=== PATIENT | male | born 1995 | race Caucasian/White ===

== ENCOUNTER 2017-03-02 20:16 | Emergency (ER) | payer SELFPAY ==
[~2017-03-02] VITALS: Ht 172.7 cm; Wt 72.4 kg
[2017-03-02 20:35] VITALS: BP 157/90; PULSE 91; RESP 16; TEMP 98.2; O2SAT 99
[2017-03-02] MEDS ORDERED: VIST25CA PO (21:06)
--- NOTE | 2017-03-02 21:06 | PD ---
HPI Chief Complaint: Anxiety Time Seen by Provider: 20:48 Travel History International Travel<30 days: No Contact w/Intl Traveler<30days: No Traveled to known affect area: No History of Present Illness HPI The patient is a 21-year-old male that states for the past 3 days he's been very anxious. He is not suicidal. He denies any fever, headache, nausea, vomiting or diarrhea. He states he has a feeling of a lump in the throat but not a sore throat. He denies any hallucinations/delusions. The patient denies any drug abuse and states that has been months since he used marijuana. The patient cannot identify any specific stresses. PFSH Past Medical History Diminished Hearing: No Genitourinary: Yes (HYPERSPADIS, TO HAVE SURGERY 11/2013) Immunizations Current: Yes Social History Alcohol Use: Yes (OCC) Tobacco Use: Yes (/ PPD) Substance Use: No Allergies-Medications (Allergen,Severity, Reaction): Coded Allergies: No Known Allergies (Unverified Adverse Reaction, Unknown, 03/02/17) Reported Meds & Prescriptions Reported Meds & Active Scripts Active No Active Prescriptions or Reported Medications Review of Systems Except as stated in HPI: all other systems reviewed are Neg Physical Exam Narrative GENERAL: The patient is alert, oriented 3, anxious in no apparent distress other than anxiety. His vital signs show blood pressure 157/90 but otherwise normal. SKIN: Focused skin assessment warm/dry. No needle tracks nor wrist slash arriola are present. HEAD: Atraumatic. Normocephalic. EYES: Pupils equal and round. No scleral icterus. No injection or drainage. ENT: No nasal bleeding or discharge. Mucous membranes pink and moist. The throat is clear with minimal erythema, no masses or abscess seen and there is no exudate. Uvula is in the midline. NECK: Trachea midline. No JVD. Thyroid appears normal. CARDIOVASCULAR: Regular rate and rhythm. No murmur appreciated. RESPIRATORY: No accessory muscle use. Clear to auscultation. Breath sounds equal bilaterally. GASTROINTESTINAL: Abdomen soft, non-tender, nondistended. Hepatic and splenic margins not palpable. MUSCULOSKELETAL: No obvious deformities. No clubbing. No cyanosis. No edema. NEUROLOGICAL: Awake and alert. No obvious cranial nerve deficits. Motor grossly within normal limits. Normal speech. PSYCHIATRIC: The patient is anxious; insight and judgment normal. Data Data Last Documented VS Vital Signs Date Time Temp Pulse Resp B/P (MAP) Pulse Ox O2 Delivery O2 Flow Rate FiO2 03/02/17 20:50 88 18 03/02/17 20:35 98.2 157/90 (112) 99 MDM Medical Decision Making Medical Screen Exam Complete: Yes Emergency Medical Condition: Yes Medical Record Reviewed: Yes Differential Diagnosis Anxiety reaction, panic attack, drug abuse-family unlikely, alcohol withdrawal- I really unlikely, hyperthyroid-highly unlikely, situational anxiety Narrative Course At this time the patient appears under control and is having an anxiety reaction. He is not having a panic attack at this time. His history is not consistent with alcohol/drug withdrawal or hyperthyroid. This is not situational anxiety, the patient cannot identify any specific stressors at work or at home. Diagnosis Primary Impression: Anxiety reaction Additional Instructions: It is helpful to talk through your anxiety symptoms someone else. Also, exercises useful when you get anxious. I will write some Vistaril to see if this works. Vistaril is not addictive. Vistaril can make you sleepy so do not drink alcohol or drive with this medication. Med/Other Pt SpecificInfo: Prescription(s) given Scripts Hydroxyzine Pamoate (Vistaril) 25 Mg Cap 25 MG PO Q6H Y for ANXIETY, #44 CAP 0 Refills Prov: West Ball MD 03/02/17 Disposition: 01 DISCHARGE HOME Condition: Stable West Ball MD Mar 02, 2017 21:06
[2017-03-02 21:45] VITALS: BP 148/87; PULSE 94; RESP 16; O2SAT 100
== END 2017-03-02 22:04 | disposition home or self-care (01) ==
LOC: PHED 20:16
DX: F41.1 Generalized anxiety disorder (principal); F17.200 Nicotine dependence, unspecified, uncomplicated
CPT/HCPCS: 99283

== ENCOUNTER 2017-03-04 13:20 | Emergency (ER) | payer OTHER ==
[~2017-03-04] VITALS: Ht 172.7 cm; Wt 73.0 kg
[~2017-03-04 13:20] MED LIST: VIST25CA PO
[2017-03-04 13:22] VITALS: BP 150/84; PULSE 81; RESP 12; TEMP 98.5; O2SAT 99
--- NOTE | 2017-03-04 14:02 | PD ---
HPI Chief Complaint: ENT Complaint Time Seen by Provider: 13:51 Travel History International Travel<30 days: No Contact w/Intl Traveler<30days: No History of Present Illness HPI 21-year-old male presents emergency Department with complaint of feeling like something is in his throat for the last 3-5 days. Says he went to [facility] a few days ago because he was anxious about his throat and was given Vistaril which made him feel worse. He says it feels like its a growth. He denies unusual drooling, lump in throat on one side or the other, difficulty swallowing. Denies painful swallowing. Denies sore throat. Denies difficulty eating or drinking. Denies fever, vomiting. Says his throat feels like it swollen. Denies cough, ear pain, recent illness. Allergies to hydroxyzine. No known relieving or aggravating factors. Has no other medical complaints. No other modifying factors or associated signs and symptoms. PFSH Past Medical History Hx Anticoagulant Therapy: No Anxiety: Yes Cardiovascular Problems: No Chemotherapy: No Cerebrovascular Accident: No Diabetes: No Diminished Hearing: No Genitourinary: Yes (HYPERSPADIS, TO HAVE SURGERY 11/2013) Respiratory: No Immunizations Current: Yes Past Surgical History Genitourinary Surgery: Yes (REPAIR HYPERSPADIS) Social History Alcohol Use: Yes (OCC) Tobacco Use: Yes (few cigarrettes per day) Substance Use: No Allergies-Medications (Allergen,Severity, Reaction): Coded Allergies: hydroxyzine (Verified Adverse Reaction, Severe, Nausea/Vomiting, 03/04/17) pt states caused nausea and diarrhea No Known Allergies (Unverified Adverse Reaction, Unknown, 03/02/17) Reported Meds & Prescriptions Reported Meds & Active Scripts Active No Active Prescriptions or Reported Medications Review of Systems Except as stated in HPI: all other systems reviewed are Neg Physical Exam Narrative GENERAL: Well-nourished, well-developed male patient, in no acute distress; afebrile, nontoxic-appearing SKIN: Warm and dry. No rash. HEAD: Atraumatic. Normocephalic. EYES: Pupils equal and round. No scleral icterus. No injection or drainage. ENT: Mucosa pink and moist. No erythema or exudates. No uvular edema. No uvular , palatal, or tonsillar deviation. Airway patent. EARS: Bilateral pinnae and external canals appear within normal limits. Bilateral tympanic membranes without erythema, dullness or perforation. NECK: Trachea midline. No lymphadenopathy. CARDIOVASCULAR: Regular rate and rhythm. No murmur appreciated. RESPIRATORY: No accessory muscle use. Clear to auscultation. Breath sounds equal bilaterally. No retractions or tachypnea. GASTROINTESTINAL: Abdomen soft, non-tender, nondistended. Hepatic and splenic margins not palpable. Bowel sounds are active 4 quadrants. MUSCULOSKELETAL: No obvious deformities. No clubbing. No cyanosis. No edema. NEUROLOGICAL: Awake and alert. Oriented 3. No obvious cranial nerve deficits. Motor grossly within normal limits. Normal speech. Moves all extremities. 5/5 strength to all extremities. PSYCHIATRIC: Appropriate mood and affect; insight and judgment normal. Data Data Last Documented VS Vital Signs Date Time Temp Pulse Resp B/P (MAP) Pulse Ox O2 Delivery O2 Flow Rate FiO2 03/04/17 13:45 18 03/04/17 13:22 98.5 81 150/84 (106) 99 Orders Orders Ed Discharge Order (03/04/17 14:03) [facility] Medical Decision Making Medical Screen Exam Complete: Yes Emergency Medical Condition: Yes Medical Record Reviewed: Yes Differential Diagnosis Food bolus, pharyngitis, less likely peritonsillar abscess Narrative Course 21-year-old male with throat discomfort and sensation of something in his throat. Patient is afebrile and nontoxic appearing. Denies fever, vomiting. Denies fever, vomiting. Swallow evaluation done at the bedside and the patient is able to drink a couple water without coughing, regurgitation, gagging, vomiting. No signs of peritonsillar abscess. Patient is in no acute distress and without retractions or tachypnea. Airway is patent. I discussed the patient with my attending physician, Dr. Roque, and he agrees with my plan of care. Instruct the patient to follow up with ENT. Instructed patient to follow up with primary care provider. Patient verbalizes understanding and agreement with treatment plan. Patient is medically cleared and stable for discharge. Discussed reasons to return to the emergency department. Patient agrees with treatment plan. The patients vital signs are stable and the patient is stable for outpatient follow-up and treatment. Patient discharged home, stable and in no acute distress. Diagnosis Primary Impression: Throat discomfort Referrals: Ear / Nose / Throat Specialist Primary Care Physician Patient Instructions: General Instructions, Pharyngitis (ED) Additional Instructions: Follow-up with primary care provider Follow-up with ENT Return to the emergency department immediately if worsening of symptoms Med/Other Pt SpecificInfo: No Change to Meds, No Meds Exist/No RX given Scripts No Active Prescriptions or Reported Meds Disposition: 01 DISCHARGE HOME Condition: Stable Varsha Iniguez Mar 04, 2017 14:02
[2017-03-05] MEDS ORDERED: OMEP40CA2 PO ×2 (13:32→13:41)
== END 2017-03-04 14:20 | disposition home or self-care (01) ==
LOC: NEPD 13:20
DX: R09.89 Other specified symptoms and signs involving the circulatory and respiratory systems (principal); Z72.0 Tobacco use; Z86.59 Personal history of other mental and behavioral disorders; Z87.448 Personal history of other diseases of urinary system
CPT/HCPCS: 99282

== ENCOUNTER 2017-03-05 11:56 | Emergency (ER) | payer OTHER ==
[~2017-03-05] VITALS: Ht 172.7 cm; Wt 69.0 kg
[2017-03-05 11:58] VITALS: BP 145/89; PULSE 107; RESP 16; TEMP 99; O2SAT 98
[2017-03-05 12:23] VITALS: BP 140/93; PULSE 86; RESP 15; O2SAT 100
[2017-03-05] MEDS ORDERED: SODIUM CHLOR 0.9% 1000 ML INJ 1,000 ML IV SCH (12:24)
[2017-03-05] MEDS ORDERED: SODIUM CHLORIDE 0.9% FLUSH 10 ML FLUSH IV FLUSH PRN (12:30)
[2017-03-05] MEDS ORDERED: ONDANSETRON HCL 4 MG/2 ML VIAL IVP ONE (12:30)
[2017-03-05] MEDS ORDERED: PANTOPRAZOLE SODIUM 40 MG VIAL IVP ONE (12:30)
[2017-03-05 12:40] VITALS: O2SAT 100
--- NOTE | 2017-03-05 12:45 | PD ---
HPI Chief Complaint: Abdominal Pain Time Seen by Provider: 12:18 Travel History International Travel<30 days: No Contact w/Intl Traveler<30days: No Traveled to known affect area: No History of Present Illness HPI 21-year-old male presents to the emergency department for evaluation of epigastric abdominal pain and reflux that has been ongoing for the past 3-5 days. He states the pain will be burning when he eats. He currently rates the pain 4/10. Patient denies any chronic medical problems. He states he has vomited 1. No diarrhea or constipation. No previous abdominal surgeries. He denies any chest pain other than burning from the reflux. No shortness of breath. No fevers or chills. Moderate severity. Eating exacerbates symptoms. Alleviating factor is not eating. PFSH Past Medical History Hx Anticoagulant Therapy: No Anxiety: Yes Cardiovascular Problems: No Chemotherapy: No Cerebrovascular Accident: No Diabetes: No Diminished Hearing: No Genitourinary: Yes (HYPERSPADIS, TO HAVE SURGERY 11/2013) Respiratory: No Immunizations Current: Yes Tetanus Vaccination: > 5 Years Influenza Vaccination: No Past Surgical History Genitourinary Surgery: Yes (REPAIR HYPERSPADIS) Social History Alcohol Use: Yes (OCC) Tobacco Use: Yes (few cigarrettes per day) Substance Use: Yes (MARIJUANA OCC) Allergies-Medications (Allergen,Severity, Reaction): Coded Allergies: hydroxyzine (Verified Adverse Reaction, Severe, Nausea/Vomiting, 03/05/17) pt states caused nausea and diarrhea Reported Meds & Prescriptions Reported Meds & Active Scripts Active Omeprazole 40 Mg Cap 40 Mg PO DAILY Review of Systems Except as stated in HPI: all other systems reviewed are Neg Physical Exam Narrative GENERAL: Well-nourished, well-developed male patient, afebrile. SKIN: Focused skin assessment warm/dry. HEAD: Normocephalic. Atraumatic. EYES: No scleral icterus. No injection or drainage. NECK: Supple, trachea midline. No JVD or lymphadenopathy. CARDIOVASCULAR: Regular rate and rhythm without murmurs, gallops, or rubs. RESPIRATORY: Breath sounds equal bilaterally. No accessory muscle use. Lungs sounds are clear to auscultation. GASTROINTESTINAL: Abdomen soft and nondistended. MUSCULOSKELETAL: No cyanosis, or edema. BACK: Nontender without obvious deformity. No CVA tenderness. Data Data Last Documented VS Vital Signs Date Time Temp Pulse Resp B/P (MAP) Pulse Ox O2 Delivery O2 Flow Rate FiO2 03/05/17 12:40 100 Room Air 03/05/17 12:23 86 15 03/05/17 11:58 99.0 Orders Orders Complete Blood Count With Diff (03/05/17 12:24) Comprehensive Metabolic Panel (03/05/17 12:24) Lipase (03/05/17 12:24) Urinalysis - C+S If Indicated (03/05/17 12:24) Iv Access Insert/Monitor (03/05/17 12:24) Ecg Monitoring (03/05/17 12:24) Oximetry (03/05/17 12:24) Ondansetron Inj (Zofran Inj) (03/05/17 12:30) Pantoprazole Inj (Protonix Inj) (03/05/17 12:30) Sodium Chlor 0.9% 1000 Ml Inj (Ns 1000 M (03/05/17 12:24) Sodium Chloride 0.9% Flush (Ns Flush) (03/05/17 12:30) Electrocardiogram (03/05/17 12:24) Ed Discharge Order (03/05/17 13:35) Labs Laboratory Tests Test 03/05/17 12:25 White Blood Count 7.9 TH/MM3 Red Blood Count 5.08 MIL/MM3 Hemoglobin 15.5 GM/DL Hematocrit 44.6 % Mean Corpuscular Volume 87.7 FL Mean Corpuscular Hemoglobin 30.5 PG Mean Corpuscular Hemoglobin Concent 34.7 % Red Cell Distribution Width 12.6 % Platelet Count 280 TH/MM3 Mean Platelet Volume 7.6 FL Neutrophils (%) (Auto) 71.9 % Lymphocytes (%) (Auto) 21.2 % Monocytes (%) (Auto) 6.3 % Eosinophils (%) (Auto) 0.2 % Basophils (%) (Auto) 0.4 % Neutrophils # (Auto) 5.7 TH/MM3 Lymphocytes # (Auto) 1.7 TH/MM3 Monocytes # (Auto) 0.5 TH/MM3 Eosinophils # (Auto) 0.0 TH/MM3 Basophils # (Auto) 0.0 TH/MM3 CBC Comment DIFF FINAL Differential Comment Urine Color LIGHT-YELLOW Urine Turbidity CLEAR Urine pH 6.5 Urine Specific [employer] 1.009 Urine Protein NEG mg/dL Urine Glucose (UA) NEG mg/dL Urine Ketones NEG mg/dL Urine Occult Blood NEG Urine Nitrite NEG Urine Bilirubin NEG Urine Urobilinogen LESS THAN 2.0 MG/DL Urine Leukocyte Esterase NEG Urine WBC 1 /hpf Microscopic Urinalysis Comment CULT NOT INDICATED Blood Urea Nitrogen 14 MG/DL Creatinine 1.13 MG/DL Random Glucose 109 MG/DL Total Protein 8.7 GM/DL Albumin 4.7 GM/DL Calcium Level 9.1 MG/DL Alkaline Phosphatase 83 U/L Aspartate Amino Transf (AST/SGOT) 27 U/L Alanine Aminotransferase (ALT/SGPT) 42 U/L Total Bilirubin 1.1 MG/DL Sodium Level 135 MEQ/L Potassium Level 4.1 MEQ/L Chloride Level 103 MEQ/L Carbon Dioxide Level 25.9 MEQ/L Anion Gap 6 MEQ/L Estimat Glomerular Filtration Rate 82 ML/MIN Lipase 98 U/L MDM Medical Decision Making Medical Screen Exam Complete: Yes Emergency Medical Condition: Yes Medical Record Reviewed: Yes Differential Diagnosis GERD versus gastritis versus pancreatitis Narrative Course 21-year-old male presents to the emergency department for evaluation of epigastric abdominal pain, burning with eating. Physical and symptoms appeared to be caused from GERD. EKG shows sinus rhythm, heart rate 88, no acute ST changes. CBC, CMP, lipase, UA are ordered and pending. Patient is given normal saline 1 L IV bolus, Zofran 4 mg IV, Protonix 40 mg IV. CBC shows no acute abnormality. CMP shows no acute abnormality. Lipase is 98. UA is negative. I discussed the case with my attending physician, Dr. Hernandez. She agrees with plan and disposition. Patient was discharged prescription for omeprazole. He is encouraged to follow-up with her primary care physician. He is to return here for any acute worsening of symptoms. The patient was discharged in stable condition with instructions, including return instructions and follow up instructions. Diagnosis Primary Impression: GERD (gastroesophageal reflux disease) Qualified Codes: K21.9 - Gastro-esophageal reflux disease without esophagitis Referrals: Primary Care Physician call for appointment Patient Instructions: Gastroesophageal Reflux Disease (ED), General Instructions Additional Instructions: Take omeprazole daily. Follow-up with your primary care physician. Return to the emergency department for any acute worsening of symptoms. Med/Other Pt SpecificInfo: Prescription(s) given Scripts Omeprazole (Omeprazole) 40 Mg Cap 40 MG PO DAILY, #30 CAP 0 Refills Prov: Pat Valentine 03/05/17 Disposition: 01 DISCHARGE HOME Condition: Stable Pat Valentine Mar 05, 2017 12:45
[2017-03-05 12:49] LABS: BLOOD, URINE NEG (NEG); GLUCOSE,URINE NEG (NEG); KETONE, URINE NEG (NEG); NITRITE,URINE NEG (NEG); PH, URINE 6.5 (5.0-8.5); URINE COLOR LIGHT-YELLOW (YELLW/STRAW)
[2017-03-05 12:50] LABS: AUTOMATED NEUTROPHIL # 5.7 TH/MM3 (1.8-7.7); BASOPHIL % 0.4 % (0.0-2.0); EOSINOPHIL % 0.2 % (0.0-4.0); HEMATOCRIT 44.6 % (39.0-51.0); HEMO FLAGS DIFF FINAL; LYMPH % 21.2 % (9.0-44.0); LYMPHOCYTE # 1.7 TH/MM3 (1.0-4.8); MEAN CELL VOLUME 87.7 FL (80.0-100.0); MEAN CORPUSCULAR HEMOGLOBIN 30.5 PG (27.0-34.0); MEAN CORPUSCULAR HGB CONC 34.7 % (32.0-36.0); MONO % 6.3 % (0.0-8.0); NEUT % 71.9 % (16.0-70.0); PLATELET COUNT 280 TH/MM3 (150-450); RED BLOOD COUNT 5.08 MIL/MM3 (4.50-5.90); RED CELL DISTRIBUTION WIDTH 12.6 % (11.6-17.2); WHITE BLOOD COUNT 7.9 TH/MM3 (4.0-11.0)
[2017-03-05 12:52] LABS: COMMENT (UR) CULT NOT INDICATED; CULTURE IF INDICATED CULT NOT INDICATED
[2017-03-05 13:17] LABS: ANION GAP 6 MEQ/L (5-15); BICARBONATE 25.9 MEQ/L (21.0-32.0); BLOOD UREA NITROGEN 14 MG/DL (7-18); CHLORIDE 103 MEQ/L (98-107); GLOMERULAR FILTRATION RATE 82 ML/MIN (>89); POTASSIUM 4.1 MEQ/L (3.5-5.1); SODIUM (NA) 135 MEQ/L (136-145)
[2017-03-05 13:18] LABS: ALT (GPT) 42 U/L (12-78); AST (GOT) 27 U/L (15-37)
[2017-03-05 13:21] LABS: ALKALINE PHOSPHATASE 83 U/L (45-117); TOTAL BILIRUBIN ADULT 1.1 MG/DL (0.2-1.0)
[2017-03-05] MEDS ORDERED: OMEP40CA2 PO ×2 (13:32→13:41)
[2017-03-05 13:50] VITALS: BP 137/91
--- NOTE | 2017-03-06 19:17 | EKG ---
Date Performed: 03/05/2017 Time Performed: 12:33:25 PTAGE: 21 years EKG: Sinus rhythm WITH SINUS ARRHYTHMIA POSSIBLE RIGHT VENTRICULAR CONDUCTION DELAY Since previous tracing, no signifi cant change noted BORDERLINE ECG PREVIOUS TRACING : 01/31/2014 12.57 DOCTOR: Shannon Mcarthur Interpretating Date/Time 03/06/2017 19:15:33
== END 2017-03-05 13:51 | disposition home or self-care (01) ==
LOC: NEPC 11:56
DX: K21.9 Gastro-esophageal reflux disease without esophagitis (principal); F41.9 Anxiety disorder, unspecified; F17.210 Nicotine dependence, cigarettes, uncomplicated; Z79.899 Other long term (current) drug therapy
CPT/HCPCS: 80053; 81001; 83690; 85025; 93005; 96361; 96374; 96375; 99284; C9113; J2405; J7030